=== PATIENT | female | born 1950 | race Caucasian/White ===

== ENCOUNTER 2017-02-12 10:59 | Emergency (ER) | payer MEDICARE, OTHER ==
[2017-02-12] MEDS ORDERED: LIDOCAINE PATCH 5% TOP STA (12:25)
[2017-02-12] MEDS ORDERED: LIDOCAINE PATCH 5% TOP ONE (12:38)
--- NOTE | 2017-02-12 13:05 | XRAY Preliminary Report ---
Exam: XR HIP W/PELVIS 2-3V LT IMPRESSION: 1. No acute bony abnormality. 2. Mild degenerative changes both hips. [facility] SITE ID: [id number]
--- NOTE | 2017-02-12 13:10 | XRAY Preliminary Report ---
Exam: XR LUMBAR SPINE 2 VIEW IMPRESSION: 1. No acute bony abnormality. 2. Old mild wedging thoracolumbar junction. 3. Multilevel mild to moderate degenerative changes throughout the scoliotic spine. [facility] SITE ID: [id number]
--- NOTE | 2017-02-12 13:12 | XRAY Report ---
EXAM: LEFT HIP AND PELVIS RADIOGRAPHY EXAM DATE: 02/12/2017 12:49 PM. HISTORY: Left hip pain after falling down stairs today. COMPARISONS: None. TECHNIQUE: 1 view of the pelvis and 1 view of the hip. FINDINGS: Bones: Normal. No fracture or bone lesion. Joints: The bilateral hip, pubis symphysis, and sacroiliac joints are preserved. Scoliosis lumbar spi ne. Mild degenerative changes both hips consisting of mild narrowing, mild uniform subcortical sclero sis and small osteophyte formation both acetabular roofs and a lesser amount of subcortical sclerosis right femoral head. Soft Tissues: Normal. No soft tissue swelling. IMPRESSION: 1. No acute bony abnormality. 2. Mild degenerative changes both hips. [facility] Referring Provider Line: [phone] SITE ID: [id number]
--- NOTE | 2017-02-12 13:19 | XRAY Report ---
EXAM: LUMBOSACRAL SPINE RADIOGRAPHY EXAM DATE: 02/12/2017 12:49 PM. CLINICAL HISTORY: Pain after falling down stairs today. COMPARISONS: None. TECHNIQUE: 3 views. FINDINGS: Alignment: 13 degree dextroscoliosis centered at T12. 12 degree levoscoliosis centered at L4. Bones: Five [id number] lumbar vertebral bodies are present. Old mild wedging T10 to L1. Trabecular and cortical patterns are intact. Disks: Mild to moderate asymmetric narrowing of the disk spaces with moderate-sized osteophytes. Facets: Multilevel moderate degenerative changes. Sacroiliac Joints: Unremarkable. Soft Tissues: Cholecystectomy. IMPRESSION: 1. No acute bony abnormality. 2. Old mild wedging thoracolumbar junction. 3. Multilevel mild to moderate degenerative changes throughout the scoliotic spine. [facility] Referring Provider Line: [phone] SITE ID: [id number]
--- NOTE | 2017-02-12 13:19 | ED Physician Documentation ---
History of Present Illness - Stated complaint Stated Complaint: L HIP/TAILBONE PX-FELL DOWN STAIRS - Chief complaint Chief Complaint: Ext Problem - Additonal information Additional information: hx from pt 66 f slipped on her stairs and fell on her buttocks yesterday no head neck chest abd pain/injury pain to low back L side and post lat L hip no numbness or weakness no incont no blood thinners Review of Systems Constitutional: denies: Fever Cardiac: denies: Chest pain / pressure GI: denies: Abdominal Pain : denies: Incontinent Musculoskeletal: reports: Back pain, Joint pain Neurologic: denies: Focal weakness, Numbness Endocrine: denies: Easy bruising / bleeding PD PAST MEDICAL HISTORY - Past Medical History Past Medical History: Yes Cardiovascular: Hypertension BAIT MAKER: Uterine cancer Musculoskeletal: Osteoarthritis - Past Surgical History Past Surgical History: Yes General: Cholecystectomy /BAIT MAKER: Hysterectomy HEENT: Cataracts - Present Medications Home Medications: Ambulatory Orders Medication Instructions Recorded Confirmed Carisoprodol [Soma] 350 mg PO Q8H PRN #15 tablet 02/12/17 Lidocaine Patch 5% [Lidoderm Patch] 1 each TOP DAILY PRN #10 patch 02/12/17 Losartan [Cozaar] 50 mg PO DAILY 02/12/17 02/12/17 hydroCHLOROthiazide 25 mg PO DAILY 02/12/17 02/12/17 [Hydrochlorothiazide] - Allergies Allergies/Adverse Reactions: Allergies Allergy/AdvReac Type Severity Reaction Status Date / Time No Known Drug Allergies Allergy Verified 02/12/17 11:15 - Social History Does the pt smoke?: No Smoking Status: Never smoker Does the pt drink ETOH?: No Does the pt have substance abuse?: Yes Substance Use and Type: Marijuana - Immunizations Immunizations are current?: Yes PD ED PE NORMAL - Vitals Vital signs reviewed: Yes - General General: Alert and oriented X 3 - HEENT HEENT: Atraumatic - Neck Neck: Supple, no meningeal sign, No bony TTP - Cardiac Cardiac: RRR - Respiratory Respiratory: No respiratory distress, Clear bilaterally - Abdomen Abdomen: Soft, Non tender, Other (no pulsatile mass) - Back Back: No spinal TTP, Other (TTP low left lumbar SI region, no focal swelling redness warmth) - Derm Derm: Normal color - Neuro Neuro: No motor deficit (hip flex knee ext foot dorsi plantar and great toe ect 5/5, no clonus, neg SLR, denies saddle anesthesia), No sensory deficit Results - Vitals Vitals: Vital Signs - 24 hr 02/12/17 11:10 Temperature 37.1 C Heart Rate 69 Respiratory 18 Rate Blood Pressure 191/81 H O2 Saturation 98 Oxygen O2 Source Room air - Rads (name of study) L spine Radiology: See rad report (no acute bony abn, degen changes, old wedging) pelvis Radiology: See rad report (no acute) Departure - Departure Disposition: 01 Home, Self Care Clinical Impression: Back sprain Contusion, hip Qualifiers: Encounter type: initial encounter Laterality: left Qualified Code(s): S70.02XA - Contusion of left hip, initial encounter Fall from slip, trip, or stumble Qualifiers: Encounter type: initial encounter Qualified Code(s): W01.0XXA - Fall on same level from slipping, tripping and stumbling without subsequent striking against object, initial encounter Condition: Good Instructions: ED Low Back Pain Injury Prescriptions: Carisoprodol [Soma] 350 mg PO Q8H PRN #15 tablet PRN Reason: muscle spasm Lidocaine Patch 5% [Lidoderm Patch] 1 each TOP DAILY PRN #10 patch PRN Reason: Pain Comments: The xrays did not show any fractures. But you have still sprained your back and probably contused the hip and that is still very painful I recommend you take tylenol 500 mg every 6 hr, use the lidocaine patches I prescribed for up to 12 hr a day, and try a muscle relaxant. Ice and/or heat is fine too - whichever feels better - both work by increasing blood flow to the injured area and helping you heal. If you are still having pain in 2 weeks, please see you PMD for a recheck - you might need further imaging such as a CT or MRI
[2017-02-12 14:05] VITALS: BP 169/104
== END 2017-02-12 14:07 | disposition home or self-care (01) ==
LOC: ED 10:59
DX: S33.5XXA Sprain of ligaments of lumbar spine, initial encounter (principal); S70.02XA Contusion of left hip, initial encounter; W10.8XXA Fall (on) (from) other stairs and steps, initial encounter; Y92.018 Other place in single-family (private) house as the place of occurrence of the external cause; I10 Essential (primary) hypertension; M19.90 Unspecified osteoarthritis, unspecified site; Z85.42 Personal history of malignant neoplasm of other parts of uterus
CPT/HCPCS: 72100; 73502; 99283; A9270

== ENCOUNTER 2017-04-15 10:01 | Outpatient (CLI) | payer MEDICARE, OTHER ==
--- NOTE | 2017-04-16 10:19 | DEXA Report ---
DEXA SCAN: 04/15/2017 CLINICAL INDICATION: Postmenopausal. TECHNIQUE: Dual energy x-ray absorptiometry (DXA) was performed on a [employer]yn[employer] system. Regions measured are the AP spine, femoral neck, and, if needed, forearm. COMPARISON: None. In accordance with the International Society for Clinical Densitometry (ISCD) guidelines, data from previous exams may be reanalyzed using current recommendations and techniques. This is done to allow a more accurate basis for comparison with the current study. FINDINGS: The data for the lumbar spine is as follows: REGION BMD (g/cm/cm) T-SCORE Z-SCORE L1 1.299 1.4 2.0 L2 1.299 0.8 1.4 L3 1.417 1.8 2.4 L4 1.306 0.9 1.5 TOTAL 1.333 1.3 1.9 NOTE: All evaluable vertebrae are used for classification. The data for the hip is as follows: REGION BMD (g/cm/cm) T-SCORE Z-SCORE Neck 0.937 -0.7 0.2 TOTAL 0.962 -0.4 0.3 NOTE: The femoral neck or total proximal femur, whichever is lowest, is used for classification. IMPRESSION: THE WHO CLASSIFICATION BASED ON THE INTERNATIONAL REFERENCE STANDARD IS NORMAL. THE FRACTURE RISK IS NOT INCREASED. RECOMMENDATION: Patients with diagnosis of osteoporosis or osteopenia should have regular bone mineral density assessment. For those eligible for Medicare, routine testing is allowed once every 2 years. Testing frequency can be increased for patients who have rapidly progressing disease or for those who are receiving medical therapy to restore bone mass. COMMENT: World Health Organization (WHO) definitions for osteoporosis and osteopenia: NORMAL BMD: T-score at 1.0 or higher, fracture risk is low. OSTEOPENIA BMD: T-score between 1.0 and -2.5, fracture risk is increased. OSTEOPOROSIS BMD: T-score at 2.5 or lower, fracture risk high. National Osteoporosis Foundation recommends: 1. Obtain adequate dietary calcium (at least 1200 mg per day) and vitamin D (400 -800 international units per day). 2. Participate, as appropriate, in regular weightbearing and muscle- strengthening exercise. 3. Avoid tobacco use and reduce alcohol and caffeine intake. 4. For more detailed information see the website at www.NOF.org. TD: 04/15/2017 12:07 ASYA
== END 2017-04-15 10:02 | disposition home or self-care (01) ==
LOC: DI 10:01
PROVIDERS: ATTEND Family Medicine
DX: Z13.820 Encounter for screening for osteoporosis (principal); N95.8 Other specified menopausal and perimenopausal disorders
CPT/HCPCS: 77080

== ENCOUNTER 2017-04-18 10:04 | Outpatient (CLI) | payer MEDICARE, OTHER ==
--- NOTE | 2017-04-24 14:06 | Mammography Report ---
DIGITAL SCREENING MAMMOGRAM: 04/18/2017 CLINICAL INDICATION: A 66-year-old, for screening. COMPARISON: Films from [place], [place] dated 03/08/2010. TECHNIQUE: Routine CC and MLO projections were obtained of the breasts. FINDINGS: The breasts demonstrate heterogeneously dense fibroglandular parenchyma bilaterally. Coarse, typically benign calcifications are present. No suspicious masses, clustered microcalcifications, or regions of architectural distortion are identified. IMPRESSION: BENIGN FINDINGS. RECOMMENDATION: ROUTINE ANNUAL SCREENING UNLESS OTHERWISE CLINICALLY INDICATED. BIRADS CATEGORY 2-BENIGN FINDINGS. STANDARD QUALIFYING STATEMENTS: 1. This examination was reviewed with the aid of Computer-Aided Detection (CAD). 2. A negative or benign imaging report should not delay biopsy if clinically suspicious findings are present. Consider surgical consultation if warranted. More than 5% of cancers are not identified by imaging. 3. Dense breasts may obscure an underlying neoplasm. TD: 04/24/2017 14:04
== END 2017-04-18 10:05 | disposition home or self-care (01) ==
LOC: DI.S 10:04
PROVIDERS: ATTEND Family Medicine
DX: Z12.31 Encounter for screening mammogram for malignant neoplasm of breast (principal)
CPT/HCPCS: 77067

== ENCOUNTER 2017-04-18 10:05 | Outpatient (CLI) | payer MEDICARE, OTHER ==
--- NOTE | 2017-04-18 18:01 | XRAY Report ---
LEFT HIP AND PELVIS: 04/18/2017 CLINICAL INDICATION: Fall, persistent pain. FINDINGS: Frontal view of the hips and pelvis and frogleg lateral view of the left hip are compared to previous films of 02/12/2017. Left hip osteoarthritis appears stable. No fracture or dislocation is identified. No radiopaque foreign body is seen in the soft tissues. IMPRESSION: MILD OSTEOARTHRITIS. NO EVIDENCE OF FRACTURE. TD: 04/18/2017 17:55
--- NOTE | 2017-04-18 18:01 | XRAY Report ---
THREE VIEW LEFT KNEE: 04/18/2017 CLINICAL INDICATION: Fall, persistent pain. FINDINGS: AP, lateral, sunrise views of the left knee demonstrate no evidence of fracture or dislocation. Minimal osteoarthritis is present, with tiny osteophytes. No effusion is present. IMPRESSION: MINIMAL OSTEOARTHRITIS. TD: 04/18/2017 17:54
== END 2017-04-18 10:06 | disposition home or self-care (01) ==
LOC: DI.S 10:05
PROVIDERS: ATTEND Family Medicine
DX: M17.12 Unilateral primary osteoarthritis, left knee (principal); M16.12 Unilateral primary osteoarthritis, left hip

== ENCOUNTER 2018-12-25 09:54 | Outpatient (CLI) | payer MEDICARE, OTHER ==
--- NOTE | 2018-12-26 10:21 | Mammography Report ---
Reason: SCREENING MAMMO Procedure Date: 12/25/2018 Accession Number: [id number] / [id number] Procedure: MGS - Screening Mammo Dig Bilat CPT Code: FULL RESULT: EXAM: Screening Mammo Dig Bilat DATE: 12/25/2018 10:19 AM CLINICAL HISTORY: Screening encounter. TECHNIQUE: (B) - Bilateral CC and MLO views were obtained. Right laterally exaggerated CC views obtained. COMPARISON: 04/18/2017 through 03/08/2010. PARENCHYMAL PATTERN: (D) - The breast(s) demonstrate(s) heterogeneously dense fibroglandular parenchyma. FINDINGS: There are coarse typically benign calcifications. There are no suspicious masses, calcifications, or areas of distortion. IMPRESSION: Benign findings. BI-RADS category 2. RECOMMENDATION: (ANNUAL) - Recommend routine annual screening mammography. BI-RADS CATEGORY: (2) - Benign Findings. STANDARD QUALIFYING STATEMENTS: 1. This examination was reviewed with the aid of Computer-Aided Detection (CAD). 2. A negative or benign imaging report should not preclude biopsy if clinically suspicious findings are present. 3. Dense breasts may obscure an underlying neoplasm. 4. This examination was reviewed without the aid of 3D breast imaging (tomosynthesis).
== END 2018-12-25 09:55 | disposition home or self-care (01) ==
LOC: DI.S 09:54
DX: Z12.31 Encounter for screening mammogram for malignant neoplasm of breast (principal)
CPT/HCPCS: 77067

== ENCOUNTER 2020-08-11 12:29 | Outpatient (CLI) | payer MEDICARE, OTHER ==
[2020-08-11 15:14] LABS: BASOPHILS % (AUTO) 0.6 %; EOSINOPHILS % (AUTO) 0.2 %; HCT - HEMATOCRIT 38.2 % (37.0-47.0); HGB - HEMOGLOBIN 12.6 g/dL (12.0-16.0); LYMPHOCYTES # (AUTO) 1.5 10^3/uL (1.5-3.5); LYMPHOCYTES % (AUTO) 29.2 %; MEAN CORPUSCULAR HEMOGLOBIN 30.4 pg (27.0-31.0); MEAN CORPUSCULAR VOLUME 92.3 fL (81.0-99.0); MONOCYTES # (AUTO) 0.4 10^3/uL (0.0-1.0); MONOCYTES % (AUTO) 7.4 %; NEUTROPHILS # (AUTO) 3.2 10^3/uL (1.5-6.6); NEUTROPHILS % (AUTO) 62.2 %; PLT - PLATELET COUNT 216 10^3/uL (130-450); RED BLOOD COUNT 4.14 10^6/uL (4.20-5.40); WHITE BLOOD COUNT 5.1 x10^3/uL (4.8-10.8)
[2020-08-11 16:01] LABS: ALBUMIN 4.4 g/dL (3.2-5.5); ALBUMIN/GLOBULIN RATIO 1.4 (1.0-2.2); BILIRUBIN,TOTAL 0.6 mg/dL (0.2-1.0); CALCIUM 9.5 mg/dL (8.5-10.3); CREATININE 0.9 mg/dL (0.4-1.0); TOTAL PROTEIN 7.5 g/dL (6.7-8.2)
== END 2020-08-11 12:30 | disposition home or self-care (01) ==
LOC: LAB.S 12:29
PROVIDERS: ATTEND Physician Assistant
DX: R19.7 Diarrhea, unspecified (principal)
CPT/HCPCS: 36415; 80053; 85025

== ENCOUNTER 2021-02-27 12:54 | Outpatient (CLI) | payer MEDICARE, OTHER ==
--- NOTE | 2021-02-28 11:47 | Mammography Report ---
BILATERAL DIGITAL SCREENING MAMMOGRAM 3D/2D: 02/27/2021 CLINICAL: Routine screening. Comparison is made to exams dated: 12/25/2018 mammogram, 04/18/2017 mammogram, and 03/08/2010 mammogra m - [facility]. The tissue of both breasts is predominantly fatty. No significant masses, calcifications, or other findings are seen in either breast. There has been no significant interval change. IMPRESSION: NEGATIVE There is no mammographic evidence of malignancy. A 1 year screening mammogram is recommended. This exam was interpreted at Station ID: [id number]. NOTE: For mammograms, a report in lay terms will be sent to the patient. Approximately 15% of breast malignancies will not be visualized mammographically. In the management of a palpable breast mass, a negative mammogram must not discourage biopsy of a clinically suspicious lesion. Electronically Signed By: Micha Kang M.D., jr/penrad:02/27/2021 14:09:20 ACR BI-RADS Category 1: Negative 3341F PARENCHYMAL PATTERN: (F) - The breast(s) demonstrate(s) diffuse fatty replacement. BI-RADS CATEGORY: (1) - 1 RECOMMENDATION: (ANNUAL) - Recommend routine annual screening mammography. [id number] 1 year screening LATERALITY: (B)
== END 2021-02-27 12:55 | disposition home or self-care (01) ==
LOC: DI.S 12:54
PROVIDERS: ATTEND Nurse Practitioner Family
DX: Z12.31 Encounter for screening mammogram for malignant neoplasm of breast (principal)

== ENCOUNTER 2022-12-26 13:51 | Outpatient (CLI) | payer MEDICARE, OTHER ==
--- NOTE | 2022-12-27 13:40 | Mammography Report ---
BILATERAL DIGITAL SCREENING MAMMOGRAM 3D/2D: 12/26/2022 CLINICAL: Routine screening. Comparison is made to exams dated: 02/27/2021 mammogram, 12/25/2018 mammogram, and 04/18/2017 mammogra m - [facility]. Both breasts are heterogeneously dense, which may obscure small masses (category c / 51-75% glandular tissue). There are calcifications in both breasts. No significant masses, calcifications, or other findings are seen in either breast. There has been no significant interval change. IMPRESSION: BENIGN There is no mammographic evidence of malignancy. A 1 year screening mammogram is recommended. Based on the Tyrer Cuzick model (a risk assessment model) the patients lifetime risk is 2.4% and her 10 year risk is 2.2%. According to the ACR, ACS, and NCCN guidelines, an annual breast MRI exam serjio g with mammogram is recommended if the patients lifetime risk is 20% or greater. This exam was interpreted at Station ID: [id number]. NOTE: For mammograms, a report in lay terms will be sent to the patient. Approximately 15% of breast malignancies will not be visualized mammographically. In the management of a palpable breast mass, a negative mammogram must not discourage biopsy of a clinically suspicious lesion. Electronically Signed By: Gamaliel Espinoza M.D. aty/:12/26/2022 18:00:43 letter sent: No_Letter ACR BI-RADS Category 2: Benign Finding(s) 3342F PARENCHYMAL PATTERN: (D) - The breast(s) demonstrate(s) heterogeneously dense fibroglandular madi turner. BI-RADS CATEGORY: (2) - 2 Mammogram [id number] 1 year screening LATERALITY: (B)
== END 2022-12-26 13:52 | disposition home or self-care (01) ==
LOC: DI.S 13:51
PROVIDERS: ATTEND Nurse Practitioner Family
DX: Z12.31 Encounter for screening mammogram for malignant neoplasm of breast (principal); R92.333 Mammographic heterogeneous density, bilateral breasts

== ENCOUNTER 2023-04-22 06:48 | Day surgery (SDC) | payer MEDICARE, OTHER ==
[2023-04-22] MEDS: LACTATED RINGERS 1,000 ML IV ONE (06:59)
[2023-04-22] MEDS: LACTATED RINGERS 700 ML IV ONE ×2 (07:48→08:29)
--- NOTE | 2023-04-22 08:00 | ANESTHESIA ---
Pre-Anesthesia VS, & Labs - Diagnosis screening - Procedure colonoscopy Vital Signs: Temp Pulse Resp BP Pulse Ox O2 Flow Rate 36.4 C L 78 16 190/99 H 98 04/22/23 07:03 04/22/23 07:03 04/22/23 07:03 04/22/23 07:03 04/22/23 07:03 Height: 5 ft 3 in Weight (kg): 93.9 kg Body Mass Index: 36.6 BMI Classification: Obese - NPO >8 hours - Is Patient ?: No Home Medications and Allergies Home Medications: Ambulatory Orders Mirtazapine 15 mg PO DAILY PM 04/19/23 Losartan [Cozaar] 50 mg PO DAILY 02/12/17 hydroCHLOROthiazide [Hydrochlorothiazide] 25 mg PO DAILY 02/12/17 Mirtazapine 15 mg PO DAILY PM 04/19/23 Allergies/Adverse Reactions: Allergies Allergy/AdvReac Type Severity Reaction Status Date / Time No Known Drug Allergies Allergy Verified 04/19/23 12:11 Anes History & Medical History - Anesthetic History Anesthesia Complications: reports: No previous complications - Medical History Cardiovascular: reports: Hypertension Pulmonary: reports: Sleep apnea, CPAP use Gastrointestinal: reports: None Urinary: reports: None Musculoskeletal: reports: None Endocrine/Autoimmune: reports: None Skin: reports: None Smoking Status: Never smoker - Surgical History General: reports: Cholecystectomy Eyes Ears Nose Throat (EENT): reports: Cataracts Gynecologic: reports: Hysterectomy Exam General: Alert, Oriented x3 Dental: WNL Mouth Opening: Greater than 4 Fingerbreadths Neck Mobility: Normal Mallampati classification: III Thyromental Distance: greater than 6 cm Respiratory: Lungs clear Cardiovascular: Regular rate, Normal S1, Normal S2 Plan Anesthesia Type: Total IV Consent for Procedure(s) Verified and Reviewed: Yes Code Status: Attempt Resuscitation ASA classification: 3-Severe systemic disease Is this case an emergency?: No
[2023-04-22] MEDS ORDERED: PROPOFOL 500 MG/50 ML 500 MG/50 ML VIAL ONE (08:24)
[2023-04-22 08:54] VITALS: BP 136/73; O2SAT 100
--- NOTE | 2023-04-22 10:54 | ANESTHESIA POST OP EVALUATION ---
Anesthesia Post Eval - Post Anesthesia Eval Vitals: Last Vital Signs Temp 36.0 C L 04/22/23 08:49 Pulse 54 L 04/22/23 08:49 Resp 16 04/22/23 08:49 BP 136/73 H 04/22/23 08:49 Pulse Ox 100 04/22/23 08:49 O2 Flow Rate CV Function Including HR & BP: Stable Pain Control: Satisfactory Nausea & Vomiting: Negative Mental Status: Baseline Respiratory Status: Airway Patent Hydration Status: Satisfactory Anesthesia Complications: None
== END 2023-04-22 06:49 | disposition home or self-care (01) ==
LOC: SDS 06:48
PROVIDERS: ATTEND Surgery
DX: Z12.11 Encounter for screening for malignant neoplasm of colon (principal); K57.30 Diverticulosis of large intestine without perforation or abscess without bleeding; K64.2 Third degree hemorrhoids; I10 Essential (primary) hypertension; E66.9 Obesity, unspecified; G47.30 Sleep apnea, unspecified; Z68.36 Body mass index [BMI] 36.0-36.9, adult; Z87.891 Personal history of nicotine dependence
CPT/HCPCS: G0121; J7120

== ENCOUNTER 2023-08-19 08:00 | Outpatient (CLI) | payer MEDICARE, OTHER | END 2023-08-19 23:59 | disposition home or self-care (01) | LOC: LAB.S 08:00 | PROVIDERS: ATTEND Physician Assistant Medical | DX: R05.1 Acute cough (principal) ==

== ENCOUNTER 2023-09-17 12:27 | Outpatient (CLI) | payer MEDICARE, OTHER | END 2023-09-17 23:59 | disposition short-term general hospital (02) | LOC: EMS 12:27 | DX: I49.9 Cardiac arrhythmia, unspecified (principal); R06.02 Shortness of breath; R06.09 Other forms of dyspnea; R07.89 Other chest pain | CPT/HCPCS: A0425; A0429 ==